=== PATIENT | male | born 1990 | race African-American/Black ===

== ENCOUNTER 2020-07-14 17:31 | Emergency (ER) | payer SELFPAY ==
[~2020-07-14] VITALS: Ht 170.2 cm; Wt 77.1 kg
[2020-07-14] MEDS ORDERED: LORazepam Inj 2mg/ml 1ml IM ONE (17:45)
[2020-07-14] MEDS ORDERED: DiphenhydrAMINE 50mg/ml Inj IM ONE (17:45)
[2020-07-14] MEDS ORDERED: Haloperidol 5mg/ml Inj IM ONE (17:45)
[2020-07-14 17:58] VITALS: BP 150/90
--- NOTE | 2020-07-14 18:00 | Emergency Room Report ---
History of Present Illness General Chief Complaint: Substance Abuse Source: EMS Present Illness HPI 30-year-old male presents to the emergency department complaining of increased anxiousness after eating for marijuana edibles approximately 2 hours ago. Patient denies other type of drug use. Patient reports that he does not regularly consume THC edibles. Patient reports he is visiting from out of town. Pt. denies medical problems. He denies taking medications. He denies allergies. He denies CP or SOB. Pt. reports needing to pace and is uncomfortable sitting down. Pt. HPI and ROS are limited due to short attention span and being acutely intoxicated. Allergies: Coded Allergies: No Known Allergies (Unverified , 07/14/20) COVID-19 Screening Contact w/high risk pt: No Experienced COVID-19 symptoms?: No COVID-19 Testing performed FILM DEVELOPER: No Patient History Past Medical History: see triage record Past Surgical History: none Pertinent Family History: none Social History: Reports: drug use - THC Reviewed Nursing Documentation: PMH: Agreed; PSxH: Agreed Nursing Documentation-PMH Past Medical History: No Stated History Review of Systems All Other Systems: limited Physical Exam Vital Signs Date Time Temp Pulse Resp B/P (MAP) Pulse Ox O2 Delivery O2 Flow Rate FiO2 07/14/20 17:28 98.4 105 18 150/90 (110) 97 Room Air Sp02 EP Interpretation: reviewed, normal General Appearance: no apparent distress, alert, GCS 15, non-toxic Head: normocephalic, atraumatic Eyes: bilateral eye normal inspection, bilateral eye PERRL ENT: hearing grossly normal, normal voice Neck: full range of motion Respiratory: chest non-tender, lungs clear, normal breath sounds, no respiratory distress, no accessory muscle use, no wheezing, speaking full sentences Cardiovascular #1: regular rate, rhythm, tachycardia Gastrointestinal: non tender, soft Musculoskeletal: back normal, normal range of motion, gait/station normal, non- tender Neurologic: alert, motor strength/tone normal, oriented x3, sensory intact, responsive, speech normal Psychiatric: judgement/insight normal, memory normal, no suicidal/homicidal id eation, anxious Skin: no rash, normal color Medical Decision Making PA Attestation Dr. Ruiz is my supervising Physician whom patient management has been discussed with. Diagnostic Impression: Primary Impression: Acute drug intoxication Qualified Codes: F19.920 - Other psychoactive substance use, unspecified with intoxication, uncomplicated ER Course 30-year-old male presents to the emergency department complaining of increased anxiousness after eating for marijuana edibles approximately 2 hours ago. Patient denies other type of drug use. Patient reports that he does not regularly consume THC edibles. Patient reports he is visiting from out of town. Pt. denies medical problems. He denies taking medications. He denies allergies. He denies CP or SOB. Pt. reports needing to pace and is uncomfortable sitting down. Pt. HPI and ROS are limited due to short attention span and being acutely intoxicated. Ddx considered but are not limited to ETOH, Trauma, Syncope, dementia, OD, substance abuse Vital signs: are WNL, pt. is afebrile H&PE are most consistent with acute drug intoxication ORDERS: - None ED INTERVENTIONS: - Benadryl 50mg IM -Ativan 2mg IM -Haldol 5mg IM -Observance while he detoxifies. -Pt. was allowed to sleep/rest. -PT. remains awake and alert x 4 Pt.s friends are here to give pt. a ride home. DISCHARGE: At this time pt. is stable for d/c to home. Will provide printed patient care instructions, and any necessary prescriptions. Care plan and follow up instructions have been discussed with the patient prior to discharge. Last Vital Signs Date Time Temp Pulse Resp B/P (MAP) Pulse Ox O2 Delivery O2 Flow Rate FiO2 07/14/20 17:28 98.4 105 18 150/90 (110) 97 Room Air Status: improved Disposition: HOME, SELF-CARE Condition: Stable Signed Out To: Dr. Ruiz Patient Instructions: Cannabis Use Disorder Additional Instructions: DISCONTINUE EXCESSIVE USE OF EDIBLE CANNABINOID PRODUCTS Take any previously prescribed medications as directed. Follow up with a Primary Care Provider in 3-5 days, even if your symptoms have resolved. Return sooner to ED if new symptoms occur, or current symptoms become worse. - Please note that this Emergency Department Report was dictated using [employer] separation photographer technology software, occasionally this can lead to erroneous entry secondary to interpretation by the dictation equipment. Sherry Cole Jul 14, 2020 18:00
[2020-07-14 21:20] VITALS: BP 142/91
== END 2020-07-14 21:20 | disposition home or self-care (01) ==
LOC: EDBD 17:31 → EMR 17:55
DX: F12.929 Cannabis use, unspecified with intoxication, unspecified (principal); F41.9 Anxiety disorder, unspecified
CPT/HCPCS: 96372; 99283; J1200; J1630